=== PATIENT | female | born 1955 | race Caucasian/White ===

== ENCOUNTER → 2016-07-15 | Outpatient (CLI) | payer BC ==
[~2016-07-15] MED LIST: ACET-1138 PO; ASPEC325 PO; CHOL100010 PO; DIPH1TAB98 PO; DYZ PO; MAGN1TAB41 PO; MISCCAP80 PO; MULT-506 PO; RXC5 PO; TRIA1SPR4 NAE
--- NOTE | 2016-07-16 13:03 | MAMMOGRAPHY REPORT ---
BILATERAL DIGITAL SCREENING MAMMOGRAM WITH CAD: 07/15/2016 CLINICAL HISTORY: Routine screening. Patient has no complaints. TECHNIQUE: Current study was also evaluated with a Computer Aided Detection (CAD) system. COMPARISON: Comparison is made to exams dated: 07/10/2015 mammogram, 04/26/2013 mammogram, 07/01/2014 m ammogram, 03/27/2012 mammogram, 10/31/2010 mammogram, and 10/10/2009 mammogram - [facility] enter. BREAST COMPOSITION: There are scattered areas of fibroglandular density in both breasts. FINDINGS: The parenchymal pattern is similar to prior exams. There are benign rim calcifications s cattered in the breasts. No developing mass, architectural distortion or cluster of suspicious micr ocalcifications is seen. IMPRESSION: ACR BI-RADS CATEGORY 2: BENIGN There is no mammographic evidence of malignancy. A 1 year screening mammogram is recommended. The p atient will receive written notification of the results. Approximately 10% of breast cancers are not detected with mammography. A negative mammographic repor t should not delay biopsy if a clinically suggestive mass is present. Shawna Silverio M.D. ay/:07/15/2016 15:25:36 Product Manager [employer]: Jahaira ARELLANO(Carlos)(Marc), [facility] letter sent: Normal 1/2 BI-RADS Code: ACR BI-RADS Category 2: Benign
== END | disposition home or self-care (01) ==
LOC: C.MAMM 09:56
PROVIDERS: ATTEND Obstetrics & Gynecology
DX: Z12.31 Encounter for screening mammogram for malignant neoplasm of breast (principal)

== ENCOUNTER → 2016-09-23 | Outpatient (CLI) | payer BC ==
[~2016-09-23] MED LIST changes: +ATOR10TA82 PO; +KETO10TA PO
--- NOTE | 2016-09-23 09:54 | DIAGNOSTIC IMAGING REPORT ---
LEFT WRIST MIN 3 VIEWS ROUTINE CLINICAL HISTORY: WRIST PAIN COMPARISON: None. DISCUSSION: No fractures or dislocations are visualized. There is a small lunate cyst. There is a small navicular spur. IMPRESSION: No fractures or dislocations identified. Electronically signed by: Jhon Peñaloza M.D. 09/23/2016 9:53 AM Dictated Date/Time: 09/23/2016 9:52 AM
--- NOTE | 2016-09-23 09:56 | DIAGNOSTIC IMAGING REPORT ---
RIGHT WRIST MIN 3 VIEWS ROUTINE CLINICAL HISTORY: WRIST PAIN Right pain COMPARISON: None. DISCUSSION: Mild degenerative change of the interosseous structures throughout. Small avulsion from the ulnar styloid. Bony alignment is anatomic. No abnormal periosteal reaction. There is no evidence for soft tissue swelling. IMPRESSION: Mild degenerative change. No acute bony abnormality. Electronically signed by: Prem Stevenson M.D. 09/23/2016 9:55 AM Dictated Date/Time: 09/23/2016 9:54 AM
[2016-09-23 13:35] LABS: BASO % 0.5 %; BASO ABS # 0.02 K/uL (0-0.2); COMPLETE YES; EOS % 4.2 %; HEMATOCRIT 44.7 % (37-47); IG% 0.2 %; LYMPH % 28.6 %; LYMPH ABS # 1.24 K/uL (1.2-3.4); MEAN CORPUSCULAR HEMOGLOBIN 30.5 pg (25-34); MEAN CORPUSCULAR HGB CONC 34.2 g/dl (32-36); MEAN PLATELET VOLUME 10.6 fL (7.4-10.4); MONO % 10.4 %; NEUT % 56.1 %; PLATELET COUNT 179 K/uL (130-400); RED BLOOD COUNT 5.02 M/uL (4.2-5.4); WHITE BLOOD COUNT 4.33 K/uL (4.8-10.8)
[2016-09-23 13:54] LABS: ALT/SGPT 41 U/L (12-78); AST/SGOT 22 U/L (15-37); BLOOD UREA NITROGEN 16 mg/dl (7-18); BUN/CREATININE RATIO 16.9 (10-20); C-REACTIVE PROTEIN < 0.29 mg/dl (0-0.29); CARBON DIOXIDE 27 mmol/L (21-32); CHLORIDE 107 mmol/L (98-107); CHOLESTEROL 136 mg/dl (0-200); CREATININE 0.95 mg/dl (0.60-1.20); GLUCOSE 99 mg/dl (70-99); POTASSIUM 3.6 mmol/L (3.5-5.1); SODIUM 143 mmol/L (136-145); TRIGLYCERIDES 136 mg/dl (0-150); URIC ACID 6.7 mg/dl (2.6-7.2); VERY LOW DENSITY LIPOPROT CALC 27 mg/dl
[2016-09-23 13:57] LABS: ALB/GLOB RATIO 1.1 (0.9-2); ALKALINE PHOSPHATASE 88 U/L (45-117); CHOLESTEROL/HDL RATIO 2.7; FERRITIN 128.3 ng/ml (8.0-388.0); HDL CHOLESTEROL 50 mg/dl; LDL CHOLESTEROL CALCULATED 59 mg/dl; RHEUMATOID FACTOR < 10.0 U/mL (0-15)
[2016-09-23 14:01] LABS: CALCIUM 9.5 mg/dl (8.5-10.1)
[2016-09-23 14:08] LABS: LYME DISEASE AB IGG NEG (NEG); LYME DISEASE AB IGM NEG (NEG)
--- NOTE | 2016-09-30 09:52 | CODING QUERY MEDICAL NECESSITY ---
CQSUPPORTING DIAGNOSIS NEEDED A supporting diagnosis is required for the test/procedure performed on this patient in order for us to be reimbursed by the patient's insurance. Please provide a supporting diagnosis for the following test/procedure listed below next to the test name along with your signature. *If there is no additional diagnosis for this patient that would support the following test/procedure please document that below next to the test/procedure. Test(s)/Procedure(s) that require a supporting diagnosis: DOS 09/23/16 VITAMIN D VITAMIN B12 Provider Signature: Date: Thank you Debbi Macias Health Information Management Once completed, please kindly fax back to [phone] For questions please call [phone]
== END | disposition home or self-care (01) ==
LOC: C.RADBC 09:09
PROVIDERS: ATTEND Nurse Practitioner Family
DX: M19.90 Unspecified osteoarthritis, unspecified site (principal); M25.539 Pain in unspecified wrist; I10 Essential (primary) hypertension; E78.00 Pure hypercholesterolemia, unspecified; R73.9 Hyperglycemia, unspecified; R53.83 Other fatigue

== ENCOUNTER → 2017-03-21 | Outpatient (CLI) | payer BC ==
[~2017-03-21] MED LIST changes: -ATOR10TA82 PO; -KETO10TA PO
[2017-03-21 10:50] LABS: BASO % 0.5 %; BASO ABS # 0.02 K/uL (0-0.2); COMPLETE YES; EOS % 3.8 %; HEMATOCRIT 44.4 % (37-47); LYMPH % 38.2 %; LYMPH ABS # 1.42 K/uL (1.2-3.4); MEAN CELL VOLUME 89.3 fL (80-100); MEAN CORPUSCULAR HGB CONC 34.7 g/dl (32-36); MEAN PLATELET VOLUME 10.7 fL (7.4-10.4); MONO % 11.8 %; NEUT % 45.7 %; PLATELET COUNT 174 K/uL (130-400); RED BLOOD COUNT 4.97 M/uL (4.2-5.4); WHITE BLOOD COUNT 3.72 K/uL (4.8-10.8)
[2017-03-21 11:19] LABS: ALT/SGPT 44 U/L (12-78); BLOOD UREA NITROGEN 23 mg/dl (7-18); BUN/CREATININE RATIO 20.6 (10-20); CALCIUM 9.6 mg/dl (8.5-10.1); CARBON DIOXIDE 31 mmol/L (21-32); CHLORIDE 105 mmol/L (98-107); CHOLESTEROL 123 mg/dl (0-200); GLUCOSE 111 mg/dl (70-99); MAGNESIUM 2.5 mg/dl (1.8-2.4); POTASSIUM 3.8 mmol/L (3.5-5.1); SODIUM 140 mmol/L (136-145); TRIGLYCERIDES 122 mg/dl (0-150); VERY LOW DENSITY LIPOPROT CALC 24 mg/dl
[2017-03-21 11:23] LABS: ALB/GLOB RATIO 1.2 (0.9-2); ALKALINE PHOSPHATASE 88 U/L (45-117); AST/SGOT 25 U/L (15-37); CHOLESTEROL/HDL RATIO 2.4; HDL CHOLESTEROL 52 mg/dl; LDL CHOLESTEROL CALCULATED 47 mg/dl
== END | disposition home or self-care (01) ==
LOC: C.LABBC 08:23
PROVIDERS: ATTEND Nurse Practitioner Family
DX: I10 Essential (primary) hypertension (principal); E78.00 Pure hypercholesterolemia, unspecified; R73.9 Hyperglycemia, unspecified; M19.90 Unspecified osteoarthritis, unspecified site; K21.9 Gastro-esophageal reflux disease without esophagitis

== ENCOUNTER 2017-04-07 15:43 | Emergency (ER) | payer BC ==
[~2017-04-07] VITALS: Ht 167.6 cm; Wt 78.3 kg
[2017-04-07 16:04] VITALS: TEMP 36.8; Ht 167.6 cm; Wt 78.3 kg
[2017-04-07] MEDS ORDERED: KETOROLAC TROMETHAMINE 30 MG/ML VIAL IV STA (16:13)
[2017-04-07] MEDS ORDERED: OPTIRAY 320 IV PRN (16:15)
[2017-04-07 16:58] LABS: BASO % 0.4 %; BASO ABS # 0.02 K/uL (0-0.2); COMPLETE YES; IG% 0.2 %; LYMPH % 20.7 %; LYMPH ABS # 1.04 K/uL (1.2-3.4); MEAN CELL VOLUME 89.1 fL (80-100); MEAN CORPUSCULAR HEMOGLOBIN 31.5 pg (25-34); MEAN CORPUSCULAR HGB CONC 35.3 g/dl (32-36); MEAN PLATELET VOLUME 10.3 fL (7.4-10.4); MONO % 7.4 %; NEUT % 69.3 %; PLATELET COUNT 186 K/uL (130-400); RED BLOOD COUNT 5.05 M/uL (4.2-5.4); WHITE BLOOD COUNT 5.03 K/uL (4.8-10.8)
[2017-04-07 17:04] LABS: MANUAL MICROSCOPIC REQUIRED? NO; REVIEW REQ? NO; URINE APPEARANCE CLEAR (CLEAR); URINE BILIRUBIN NEG (NEG); URINE COLOR YELLOW; URINE NITRITE NEG (NEG); URINE SPECIFIC GRAVITY 1.012 (1.000-1.030); UROBILINOGEN NEG (NEG); ZZUR CULT IF INDIC CLEAN CATCH NO
[2017-04-07 17:16] LABS: BUN/CREATININE RATIO 14.3 (10-20); CALCIUM 10.2 mg/dl (8.5-10.1); CREATININE 1.08 mg/dl (0.60-1.20); POTASSIUM 3.5 mmol/L (3.5-5.1)
[2017-04-07 17:19] LABS: ALB/GLOB RATIO 1.2 (0.9-2)
--- NOTE | 2017-04-07 17:43 | EMERGENCY ROOM VISIT NOTE ---
History First contact with patient: 16:07 Chief Complaint: FLANK PAIN Stated Complaint: LEFT SIDE BACK PAIN History of Present Illness The patient is a 61 year old female who presents to the Emergency Room with complaints of left flank pain with radiation into the abdomen. The patient states that she developed this pain 2 weeks ago, which lasted for a few days then resolved. She states the pain came back 2 days ago. The pain radiates from the left flank into the left upper and mid abdomen. She has no associated nausea/vomiting, chest pain, shortness of breath or changes in bowel movements. She does report increased frequency of urination but denies any other urinary symptoms. She rates her discomfort a 10/10. She was seen at her primary care provider and they did a urine sample which she states was normal. She was sent here for further evaluation. She has a history of a but no other abdominal surgeries or issues. Review of Systems A complete 10 point review of systems was reviewed with the patient with pertinent positives and negatives as per history of present illness. All else were negative. Past Medical/Surgical History Medical Problems: (1) Left Hip DJD Social History Smoking Status: Never Smoker Current/Historical Medications Scheduled Atorvastatin (Lipitor), 10 MG PO DAILY Cholecalciferol (Vitamin D), 2,000 INTER.UNIT PO QPM Magnesium Oxide (Magnesium), 400 MG PO QPM Probiotic Product (Probiotic), 1 CAP PO QPM Triamterene/Hctz (Dyazide 37.5/25 Mg), 1 CAP PO QAM Scheduled PRN Diphenhydramine Hcl (Sleep) (Sleep Aid), 1 TAB PO HS PRN for Insomnia Triamcinolone Acetonide (Nasal (Nasacort Allergy 24Hr), 2 SPRAYS [place] DAILY PRN for PRN Physical Exam Vital Signs Date Time Temp Pulse Resp B/P (MAP) Pulse Ox O2 Delivery O2 Flow Rate FiO2 04/07/17 19:13 65 18 139/88 96 04/07/17 17:50 61 18 139/88 94 Room Air 04/07/17 16:04 36.8 72 18 161/97 96 Room Air Physical Exam VITALS: Vitals are noted on the nurse's note and reviewed by myself. Vital signs stable. GENERAL: This is a 61-year-old female, in no acute distress, nondiaphoretic, well-developed well-nourished. SKIN: Capillary reflex less than 2 seconds. HEENT: Normocephalic. PERRLA. Mucous membranes moist. Neck is supple without nuchal rigidity. HEART: Regular rate and rhythm without murmurs gallops or rubs. LUNGS: Clear to auscultation bilaterally without wheezes, rales or rhonchi. ABDOMEN: Positive bowel sounds x 4. Soft, no abdominal tenderness to palpation. There is left-sided CVA tenderness. NEURO: Patient was alert and oriented to person place and time. Medical Decision & Procedures ER Provider Diagnostic Interpretation: ABDOMEN AND PELVIS CT WITH IV CONTRAST CT DOSE: 389.58 mGy.cm HISTORY: Acute left-sided flank pain. Initial exam left flank pain, radiation into abdomen TECHNIQUE: Multiaxial CT images of the abdomen and pelvis were performed following the use of intravenous contrast. 94 ml Optiray 320 IV contrast was administered A dose lowering technique was utilized adhering to the principles of ALARA. COMPARISON STUDY: None. FINDINGS: Minimal dependent subsegmental bibasilar atelectasis. No pneumoperitoneum. Imaged inferior cardiac chambers are unremarkable. The liver, spleen, pancreas, adrenal glands and gallbladder are unremarkable. 5 mm low attenuating lesion of the posterior interpolar left kidney suggests cyst. No renal calculi or hydronephrosis. Ureters appear unremarkable. Pelvic structures are now well-seen secondary to streak artifact from bilateral hip arthroplasties. Within the limitations of the study, the urinary bladder, uterus and adnexa are unremarkable. Mild atherosclerotic plaquing of the abdominal aorta. No bulky adenopathy. There is no bowel obstruction or focal bowel wall thickening identified. The rectosigmoid, splenic flexure and descending colon demonstrates mild wall thickening with nondistention. No significant surrounding inflammatory stranding. No evidence of acute appendicitis. Scattered colonic diverticulosis without acute diverticulitis. Soft tissues are unremarkable. Small fat filled table cardiac, diastases 1.8 cm. Degenerative changes are seen about the spine. Severe intervertebral disc space narrowing at L2-L3. IMPRESSION: 1. Mild wall thickening of the colon extending from the splenic flexure to the rectum without significant inflammatory stranding may simply be secondary to nondistention, however a mild colitis could cause a similar appearance. Correlate with patient history and clinical exam. 2. No bowel obstruction. 3. Mild colonic diverticulosis without diverticulitis. 4. No evidence of acute appendicitis. Laboratory Results 04/07/17 16:43 Red Blood Count 5.05, Mean Corpuscular Volume 89.1, Mean Corpuscular Hemoglobin 31.5, Mean Corpuscular Hemoglobin Concent 35.3, Mean Platelet Volume 10.3, Neutrophils (%) (Auto) 69.3, Lymphocytes (%) (Auto) 20.7, Monocytes (%) (Auto) 7.4, Eosinophils (%) (Auto) 2.0, Basophils (%) (Auto) 0.4, Neutrophils # (Auto) 3.49, Lymphocytes # (Auto) 1.04, Monocytes # (Auto) 0.37, Eosinophils # (Auto) 0.10, Basophils # (Auto) 0.02 04/07/17 16:43 Test 04/07/17 16:35 04/07/17 16:43 Urine Color YELLOW Urine Appearance CLEAR (CLEAR) Urine pH 6.0 (4.5-7.5) Urine Specific [place] 1.012 (1.000-1.030) Urine Protein NEG (NEG) Urine Glucose (UA) NEG (NEG) Urine Ketones NEG (NEG) Urine Occult Blood NEG (NEG) Urine Nitrite NEG (NEG) Urine Bilirubin NEG (NEG) Urine Urobilinogen NEG (NEG) Urine Leukocyte Esterase TRACE (NEG) Urine WBC (Auto) 0 /hpf (0-5) Urine RBC (Auto) 0-4 /hpf (0-4) Urine Hyaline Casts (Auto) 0 /lpf (0-5) Urine Epithelial Cells (Auto) 5-10 /lpf (0-5) Urine Bacteria (Auto) NEG (NEG) White Blood Count 5.03 K/uL (4.8-10.8) Red Blood Count 5.05 M/uL (4.2-5.4) Hemoglobin 15.9 g/dL (12.0-16.0) Hematocrit 45.0 % (37-47) Mean Corpuscular Volume 89.1 fL (80-100) Mean Corpuscular Hemoglobin 31.5 pg (25-34) Mean Corpuscular Hemoglobin Concent 35.3 g/dl (32-36) Platelet Count 186 K/uL (130-400) Mean Platelet Volume 10.3 fL (7.4-10.4) Neutrophils (%) (Auto) 69.3 % Lymphocytes (%) (Auto) 20.7 % Monocytes (%) (Auto) 7.4 % Eosinophils (%) (Auto) 2.0 % Basophils (%) (Auto) 0.4 % Neutrophils # (Auto) 3.49 K/uL (1.4-6.5) Lymphocytes # (Auto) 1.04 K/uL (1.2-3.4) Monocytes # (Auto) 0.37 K/uL (0.11-0.59) Eosinophils # (Auto) 0.10 K/uL (0-0.5) Basophils # (Auto) 0.02 K/uL (0-0.2) RDW Standard Deviation 42.7 fL (36.4-46.3) RDW Coefficient of Variation 13.3 % (11.5-14.5) Immature Granulocyte % (Auto) 0.2 % Immature Granulocyte # (Auto) 0.01 K/uL (0.00-0.02) Anion Gap 11.0 mmol/L (3-11) Est Creatinine Clear Calc Drug Dose 57.0 ml/min Estimated GFR () 63.7 Estimated GFR (Non- 55.0 BUN/Creatinine Ratio 14.3 (10-20) Calcium Level 10.2 mg/dl (8.5-10.1) Total Bilirubin 0.6 mg/dl (0.2-1) Aspartate Amino Transf (AST/SGOT) 24 U/L (15-37) Alanine Aminotransferase (ALT/SGPT) 45 U/L (12-78) Alkaline Phosphatase 116 U/L (45-117) Total Protein 8.6 gm/dl (6.4-8.2) Albumin 4.6 gm/dl (3.4-5.0) Globulin 4.0 gm/dl (2.5-4.0) Albumin/Globulin Ratio 1.2 (0.9-2) Lipase 301 U/L (73-393) Medications Administered Medications (Trade) Dose Ordered Sig/Shayla Route Start Time Stop Time Status Last Admin Dose Admin Ketorolac Tromethamine (Toradol Inj) 30 mg NOW STAT IV 04/07/17 16:13 04/07/17 16:15 DC 04/07/17 16:46 30 MG ED Course The patient was evaluated as above. Labs were drawn and IV access was obtained. Patient was medicated with [address] of the abdomen and pelvis was performed and read by radiology as above. Patient was reevaluated and was feeling better. Findings were discussed with the patient. Discharge instructions were reviewed with the patient. The patient verbalized understanding of my assessment and treatment plan and was discharged home in good condition. Medical Decision Differential diagnosis includes kidney stone, pyelonephritis, gastroenteritis, colitis, cholecystitis, mesenteric adenitis, among others. The patient is a 61-year-old female who presents today complaining of left flank pain. Labs revealed no leukocytosis, anemia or concerning electrolyte abnormalities. LFTs were within normal limits. Creatinine was within normal limits. Urinalysis was not suggestive of infection. CT showed evidence of possible mild colitis. Patient was instructed to follow-up with her primary care provider regarding this. I do not feel that any antibiotics or other medications are necessary at this time. She was instructed to return here if her symptoms worsen. The patient's case was reviewed with Dr. Nelson, ED attending physician, who agreed with my assessment and treatment plan. Based on the patient's presentation and work up, I feel the patient is stable for outpatient treatment. The patient was educated to return to the emergency department for any worsening of their current condition or new/concerning symptoms. She will follow up with her PCP. Medication Reconcilliation Current Medication List: was personally reviewed by me Blood Pressure Screening Patient's blood pressure: Elevated blood pressure Blood pressure disposition: Elevated BP felt to be situational Impression Primary Impression: Left flank pain Additional Impression: Colitis Departure Information Dispostion Home / Self-Care Condition GOOD Referrals Arun Wheeler III, CRNP (PCP) Patient Instructions My [facility] [place] [employer] Additional Instructions Toradol as prescribed as needed for pain. Clear liquid diet for the next 24-48 hours, then advance as tolerated. Follow-up with your primary care provider. Call tomorrow for appointment. Return to the emergency department with any worsening pain, vomiting, fevers, or new/concerning symptoms. Problem Qualifiers
--- NOTE | 2017-04-07 17:46 | DIAGNOSTIC IMAGING REPORT ---
ABDOMEN AND PELVIS CT WITH IV CONTRAST CT DOSE: 389.58 mGy.cm HISTORY: Acute left-sided flank pain. Initial exam left flank pain, radiation into abdomen TECHNIQUE: Multiaxial CT images of the abdomen and pelvis were performed following the use of intravenous contrast. 94 ml Optiray 320 IV contrast was administered A dose lowering technique was utilized adhering to the principles of ALARA. COMPARISON STUDY: None. FINDINGS: Minimal dependent subsegmental bibasilar atelectasis. No pneumoperitoneum. Imaged inferior cardiac chambers are unremarkable. The liver, spleen, pancreas, adrenal glands and gallbladder are unremarkable. 5 mm low attenuating lesion of the posterior interpolar left kidney suggests cyst. No renal calculi or hydronephrosis. Ureters appear unremarkable. Pelvic structures are now well-seen secondary to streak artifact from bilateral hip arthroplasties. Within the limitations of the study, the urinary bladder, uterus and adnexa are unremarkable. Mild atherosclerotic plaquing of the abdominal aorta. No bulky adenopathy. There is no bowel obstruction or focal bowel wall thickening identified. The rectosigmoid, splenic flexure and descending colon demonstrates mild wall thickening with nondistention. No significant surrounding inflammatory stranding. No evidence of acute appendicitis. Scattered colonic diverticulosis without acute diverticulitis. Soft tissues are unremarkable. Small fat filled table cardiac, diastases 1.8 cm. Degenerative changes are seen about the spine. Severe intervertebral disc space narrowing at L2-L3. IMPRESSION: 1. Mild wall thickening of the colon extending from the splenic flexure to the rectum without significant inflammatory stranding may simply be secondary to nondistention, however a mild colitis could cause a similar appearance. Correlate with patient history and clinical exam. 2. No bowel obstruction. 3. Mild colonic diverticulosis without diverticulitis. 4. No evidence of acute appendicitis. Electronically signed by: Vincent Cardona M.D. 04/07/2017 5:45 PM Dictated Date/Time: 04/07/2017 5:35 PM
[2017-04-07] MEDS ORDERED: KETO10TA PO (18:16)
[2017-04-07] MEDS ORDERED: ATOR10TA82 PO (18:24)
[2017-04-07 19:13] VITALS: BP 139/88; PULSE 65; O2SAT 96
== END 2017-04-07 19:17 | disposition home or self-care (01) ==
LOC: C.EDB 15:44 → C.EDC 19:17
DX: R10.9 Unspecified abdominal pain (principal); K52.9 Noninfective gastroenteritis and colitis, unspecified; M17.12 Unilateral primary osteoarthritis, left knee

== ENCOUNTER → 2017-04-16 | Outpatient (CLI) | payer BC ==
[~2017-04-16] MED LIST changes: -ACET-1138 PO; -ASPEC325 PO; +ATOR10TA82 PO; -MULT-506 PO; -RXC5 PO
[2017-04-16 18:26] LABS: URINE APPEARANCE CLEAR (CLEAR); URINE BILIRUBIN NEG (NEG); URINE COLOR YELLOW; URINE EPITHELIAL CELL AUTO 20-30 /lpf (0-5); URINE NITRITE NEG (NEG); URINE PH 6.5 (4.5-7.5); URINE SPECIFIC GRAVITY 1.012 (1.000-1.030); UROBILINOGEN NEG (NEG)
[2017-04-16 18:34] LABS: MANUAL MICROSCOPIC REQUIRED? NO; REVIEW REQ? NO
== END | disposition home or self-care (01) ==
LOC: C.LABSPEC 17:09
PROVIDERS: ATTEND Nurse Practitioner Family
DX: R10.9 Unspecified abdominal pain (principal)

== ENCOUNTER → 2017-07-18 | Outpatient (CLI) | payer OTHER ==
--- NOTE | 2017-07-21 08:07 | MAMMOGRAPHY REPORT ---
BILATERAL DIGITAL SCREENING MAMMOGRAM TOMOSYNTHESIS WITH CAD: 07/18/2017 CLINICAL HISTORY: Routine screening. Patient has no complaints. TECHNIQUE: Breast tomosynthesis in addition to standard 2D mammography was performed. Current study was also evaluated with a Computer Aided Detection (CAD) system. COMPARISON: Comparison is made to exams dated: 07/15/2016 mammogram, 07/10/2015 mammogram, 07/01/2014 ma mmogram, 04/26/2013 mammogram, 03/27/2012 mammogram, and 10/31/2010 mammogram - [facility]. BREAST COMPOSITION: There are scattered areas of fibroglandular density in both breasts. FINDINGS: There is stable focal asymmetry in the upper outer middle one third of the left breast, and scattered benign rim calcifications bilaterally. No suspicious mass, architectural distortion or cl uster of microcalcifications is seen. IMPRESSION: ACR BI-RADS CATEGORY 1: NEGATIVE There is no mammographic evidence of malignancy. A 1 year screening mammogram is recommended. The pa tient will receive written notification of the results. Approximately 10% of breast cancers are not detected with mammography. A negative mammographic report should not delay biopsy if a clinically suggestive mass is present. Shawna Silverio M.D. ay/:07/18/2017 16:36:16 Take Away Attendant: Jahaira Grubbs, [facility] letter sent: Normal 1/2 BI-RADS Code: ACR BI-RADS Category 1: Negative
== END | disposition home or self-care (01) ==
LOC: C.MAMM 09:56
PROVIDERS: ATTEND Obstetrics & Gynecology
DX: Z12.31 Encounter for screening mammogram for malignant neoplasm of breast (principal)

== ENCOUNTER → 2017-09-17 | Outpatient (CLI) | payer OTHER ==
--- NOTE | 2017-09-17 09:15 | DIAGNOSTIC IMAGING REPORT ---
LEFT ANKLE 3 VIEWS HISTORY: Left ankle pain. COMPARISON: None. FINDINGS: There is no fracture or dislocation. Soft tissues are unremarkable. Small plantar heel spur. Minimal cartilage space narrowing within the anterior aspect of the tibiotalar joint. This is consistent with degenerative change. IMPRESSION: No fracture or dislocation within the left ankle. 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 Electronically signed by: Rome Holguin M.D. 09/17/2017 9:14 AM Dictated Date/Time: 09/17/2017 9:12 AM
[2017-09-17 10:56] LABS: BLOOD UREA NITROGEN 19 mg/dl (7-18); CALCIUM 9.8 mg/dl (8.5-10.1); CARBON DIOXIDE 29 mmol/L (21-32); CREATININE 1.14 mg/dl (0.60-1.20); GLUCOSE,FASTING 109 mg/dl (70-99); SODIUM 140 mmol/L (136-145)
[2017-09-17 10:58] LABS: HEMOGLOBIN A1C 4.9 % (4.5-5.6)
== END | disposition home or self-care (01) ==
LOC: C.RADBC 08:55
PROVIDERS: ATTEND Nurse Practitioner Family
DX: M19.90 Unspecified osteoarthritis, unspecified site (principal); R73.9 Hyperglycemia, unspecified